=== PATIENT | female | born 1965 | race Caucasian/White ===

== ENCOUNTER 2017-10-07 13:27 | Emergency (ER) | payer MEDICARE, MEDICAID ==
[2017-10-07 13:38] VITALS: BP 154/73
--- NOTE | 2017-10-07 13:53 | UC ---
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 Rn Gastroenterology provides the majority of the history. she tells me that pt does the elliptical everyday at home for exercise, but over the last 3-4 days has been complaining of right knee pain and they noticed the swelling is getting worse. Denies recent specific injury. Rn Gastroenterology tells me that pt fell about 3 years ago and fractured her knee cap requiring surgery, but has been doing well until a few days ago. No recent falls. Denies numbness or tingling. - History of Current Complaint Chief Complaint: UCLowerExtremity Stated Complaint: KNEE PAIN Time Seen by Provider: 10/07/17 13:53 Hx Obtained From: Patient, Family/Rn Gastroenterology Onset/Duration: Sudden Onset Severity Initially: Mild Severity Currently: Mild Pain Intensity: 3 Pain Scale Used: 0-10 Numeric - Allergies/Home Medications Allergies/Adverse Reactions: Allergies Allergy/AdvReac Type Severity Reaction Status Date / Time methylphenidate Allergy See Comment Verified 10/07/17 13:39 [From Ritalin] propoxyphene [From Darvon] Allergy See Comment Verified 10/07/17 13:39 Home Medications: Home Medications Acetaminophen TAB* [Tylenol TAB*] 1 tab PO BEDTIME 10/07/17 [History Confirmed 10/07/17] Ascorbic Acid TAB* [Vitamin C TAB*] 1 tab PO QAM 10/07/17 [History Confirmed ] Calcium Carbonate/Vitamin D3 [Calcium 500 + Vit D Caplet] 1 tab PO BID 10/07/17 [History Confirmed 10/07/17] Calcium Polycarbophil TAB* [Fibercon TAB*] 1 tab PO BID 10/07/17 [History Confirmed 10/07/17] Cholecalciferol TAB* [Vitamin D TAB*] 1 tab PO DAILY 10/07/17 [History Confirmed 10/07/17] Divalproex DR TAB(*) [Depakote DR TAB(*)] 2 tab PO BEDTIME 10/07/17 [History Confirmed 10/07/17] Loratadine 1 tab PO DAILY 10/07/17 [History Confirmed 10/07/17] Lubiprostone [Amitiza] 1 tab PO BID 10/07/17 [History Confirmed 10/07/17] Mirabegron (NF) [Myrbetriq (NF)] 1 tab PO DAILY 10/07/17 [History Confirmed 04/14] Multivitamin [Multivitamins] 1 tab PO DAILY 10/07/17 [History Confirmed 10/07/17 ] Polyethylene Glycol 3350* [Miralax*] 1 packet PO DAILY 10/07/17 [History Confirmed 10/07/17] Venlafaxine TAB (NF) [Effexor TAB (NF)] 150 mg PO DAILY 10/07/17 [History Confirmed 10/07/17] diPHENhydraMINE PO* [Benadryl PO 25 MG TAB*] 1 tab PO BEDTIME 10/07/17 [History Confirmed 10/07/17] PMH/Surg Hx/FS Hx/Imm Hx - Additional Past Medical History Additional PMH: Overactive bladder Anxiety IBS Headaches - Surgical History Surgical History: None - Family History Known Family History: Positive: Unknown - Social History Occupation: Disabled Lives: Assisted Living Alcohol Use: None Substance Use Type: None Smoking Status (MU): Never Smoked Tobacco - Immunization History Most Recent Tetanus Shot: UNK Review of Systems Constitutional: Negative Skin: Negative Respiratory: Negative Cardiovascular: Negative Neurovascular: Negative Musculoskeletal: Other: - Right knee pain and swelling Neurological: Negative Psychological: Negative All Other Systems Reviewed And Are Negative: Yes Physical Exam - Summary Physical Exam Summary: GENERAL: NAD. WDWN. No pain distress. SKIN: No rashes, sores, lesions, or open wounds. NECK: Supple. Nontender. No lymphadenopathy. CHEST: No accessory muscle use. Breathing comfortably and in no distress. CV: RRR. Without m/r/g. Pulses intact popliteal, PT, and DP. Brisk cap refill. MSK: Right knee: FROM passive and active. Strength 5/5. Moderate edema about right knee. NEURO: Alert. Sensations intact and symmetric B/L LEs PSYCH: Age appropriate behavior. Triage Information Reviewed: Yes Vital Signs: Initial Vital Signs Temp 98.7 F 10/07/17 13:31 Pulse 89 10/07/17 13:31 Resp 20 10/07/17 13:31 BP 154/73 10/07/17 13:31 Pulse Ox 99 10/07/17 13:31 Knee Pain Course/Dx - Course Course Of Treatment: XR: IMPRESSION: Acute recurrent or new transverse fracture through the patella versus chronic fracture with nonunion. 1.8 cm cephalocaudal distraction of the proximal and distal pole moieties of the patella. 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 She tells me Dr. Umanzor performed her original surgery and would like to see him again in follow up. Advised to use walker and bear as little weight as possible until f/u with Dr. Umanzor. - Differential Dx/Diagnosis Provider Diagnoses: Right knee pain Discharge - Sign-Out/Discharge Documenting (check all that apply): Discharge/Admit/Transfer - Discharge Plan Condition: Stable Disposition: HOME Referrals: No Primary Care Phys,NOPCP [Primary Care Provider] - Blake Umanzor MD [Medical Doctor] - As Soon As Possible Additional Instructions: If you develop a fever, shortness of breath, chest pain, new or worsening symptoms - please call your PCP or go to the ED. 1) Please call Dr. Umanzor at [facility]oped[facility] as soon as possible to schedule a follow up appointment 2) Use your walker and limit weight bearing as much as possible - Billing Disposition and Condition Condition: STABLE Disposition: Home
--- NOTE | 2017-10-07 14:44 | RAD ---
Indication: RIGHT knee pain and swelling for 3 days. Pain medial aspect of patella. Remote surgery for femur fracture and surgery for patellar fracture 3 years ago. Comparison: None. Technique: RIGHT knee: AP, tunnel, lateral, sunrise views. Report: Bone density appears decreased throughout. Healed fracture at the junction of the distal diaphysis and distal metaphysis of the femur. 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 1.8 cm cephalocaudal distraction of the proximal and distal pole moieties of the patella. Solitary lag screw at the proximal pole of the patella and 3 lag screws at the distal pole of the patella which do not appear to bridge the gap between the fracture fragments. Minimal joint effusion. Normal femoral tibial articular alignment. Only mild medial joint space narrowing. Advanced patellofemoral joint space narrowing and associated subchondral sclerosis and mild osteophytosis. Unremarkable soft tissue contours. 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 1.8 cm cephalocaudal distraction of the proximal and distal pole moieties of the patella.
== END 2017-10-07 15:10 | disposition home or self-care (01) ==
LOC: UCEAST 13:27
DX: M25.561 Pain in right knee (principal); N32.81 Overactive bladder; K58.9 Irritable bowel syndrome, unspecified; R51 Headache; R41.9 Unspecified symptoms and signs involving cognitive functions and awareness; Z88.5 Allergy status to narcotic agent; Z88.8 Allergy status to other drugs, medicaments and biological substances
CPT/HCPCS: 99202; G0463

== ENCOUNTER 2017-10-10 06:44 | Inpatient (IN) | payer MEDICARE, MEDICAID ==
[~2017-10-10 06:44] MED LIST: Buffered Lidocaine 0.9% SYRIN* 5 ML/SYR SYRINGE INTRADERM ONE; Famotidine IV* 10 MG/ML 2 ML (20 mg) IV ONE
[2017-10-10] MEDS ORDERED: ceFAZolin 2 GM PREMIX (*) 2 GM/50 ML BAG IVPB ONE (06:54)
[2017-10-10] MEDS ORDERED: Famotidine IV* 10 MG/ML 2 ML (20 mg) ONE (06:54)
[2017-10-10] MEDS ORDERED: fentaNYL* 50 MCG/ML 2 ML VIAL (100 MCG VIAL) ONE ×2 (08:08→09:43)
[2017-10-10] MEDS ORDERED: Midazolam* 1 MG/ML 5 ML VIAL (5 MG) ONE (08:09)
[2017-10-10] MEDS ORDERED: Ketorolac INJ* 30 MG/ML 1 ML VIAL ONE (08:12)
[2017-10-10] MEDS ORDERED: Succinylcholine* 20 MG/ML 10 ML VIAL ONE ×2 (08:12→08:13)
[2017-10-10] MEDS ORDERED: DiMENhydriNATE IV* 50 MG/ML VIAL ONE (08:12)
[2017-10-10] MEDS ORDERED: Lidocaine 2% PF * 5 ML VIAL ONE (08:12)
[2017-10-10] MEDS ORDERED: Propofol* 10 MG/ML 20 ML BTL IV PUSH ONE (08:12)
[2017-10-10] MEDS ORDERED: Dexamethasone IV* 4 MG/ML 1 ML (4 MG) ONE (08:12)
[2017-10-10] MEDS ORDERED: Bupivacaine 0.5% SDV PF* 30ML VIAL ONE (08:44)
[2017-10-10] MEDS ORDERED: Acetaminophen IV 1GM/100ML * 1,000 MG/100 ML VIAL IVPB ONE (10:12)
[2017-10-10] MEDS ORDERED: Ondansetron INJ* 2 MG/ML VIAL IV PRN ×2 (10:12→13:39)
[2017-10-10] MEDS ORDERED: Naloxone* 0.4 MG/ML 1 ML VIAL IV PRN (10:12)
[2017-10-10] MEDS ORDERED: HYDROmorphone INJ* 1 MG/ML CARPUJECT SYRINGE IV PRN (10:12)
[2017-10-10] MEDS ORDERED: HYDROmorphone INJ* 0.5 MG/0.5 ML SYRINGE ONE (11:31)
[2017-10-10] MEDS ORDERED: Midazolam* 1 MG/ML 2 ML VIAL (2 MG) ONE (11:36)
[2017-10-10] MEDS ORDERED: HYDROmorphone INJ* 2 MG/ML CARPUJECT SYRINGE ONE ×2 (12:49→13:41)
--- NOTE | 2017-10-10 13:10 | RAD ---
INDICATION: ORIF revision RIGHT patella. Technique: 26.9 seconds of?fluoroscopy?was provided?for the physician proceduralist. REPORT: Spot images document removal of the previous fixation screws at the patella and placement of 2 caudal to cranial lag screws across the axial patella fracture with resulting close apposition of the cephalad and caudal moieties of the patella. IMPRESSION: Procedural control films. CPT II Codes: G9500
[2017-10-10] MEDS ORDERED: Levalbuterol 0.63MG/3ML NEB* UNIT OF USE INH ONE ×2 (13:16→13:23)
[2017-10-10] MEDS ORDERED: Glycopyrrolate IV* 0.2 MG/ML 1 ML VIAL IV SLOW PU ONE (13:23)
[2017-10-10] MEDS ORDERED: Acetaminophen TAB* 325 MG PO PRN (13:39)
[2017-10-10] MEDS ORDERED: oxyCODONE/Acetamin 5/325 MG* TAB PO PRN ×2 (13:39→21:00)
[2017-10-10] MEDS ORDERED: Glycopyrrolate IV* 0.2 MG/ML 1 ML VIAL ONE (13:46)
[2017-10-10] MEDS ORDERED: Magnesium Hydroxide LIQ* 30 ML UDC PO PRN (13:54)
[2017-10-10] MEDS ORDERED: oxyCODONE TAB* 5 MG TAB PO PRN (13:54)
[2017-10-10] MEDS ORDERED: oxyCODONE/Acetamin 5/325 MG* TAB ONE (14:04)
[2017-10-10] MEDS: oxyCODONE/Acetamin 5/325 MG* TAB PO PRN ×3 (14:05→23:50)
--- NOTE | 2017-10-10 14:08 | PN ---
Progress Note - Progress Note Date of Service: 10/10/17 Note: Patient underwent right knee ORIF revision on 10/10/[address] Molina. She is mentally disabled and will be toe touch weight bearing. She needs to be kept in observation for physical therapy as there is concern for patient to consistently follow directions to be toe touch weight bearing in a knee immobilizer. She will also need to be taught how to ambulate up stairs as in her guardian's house she has to climb a flight of stairs. She is also in need of pain management. She will need placement in rehab facility on discharge. DVT prophylaxis will be 2 weeks of lovenox and then 2 weeks of 325mg ASA.
[2017-10-10] MEDS: Enoxaparin(*) 40 MG/0.4 ML SYR SUBCUT SCH (15:33)
[2017-10-10] MEDS: ceFAZolin 2 GM PREMIX (*) 2 GM/50 ML BAG IVPB SCH (17:45)
[2017-10-10] MEDS: Magnesium Hydroxide LIQ* 30 ML UDC PO SCH (19:36)
[2017-10-10] MEDS ORDERED: Ibuprofen TAB* 600 MG PO PRN (20:21)
[2017-10-10] MEDS ORDERED: Morphine VIAL* 4 MG/ML VIAL (1 ml vial) IV PRN (20:23)
[2017-10-11] MEDS: ceFAZolin 2 GM PREMIX (*) 2 GM/50 ML BAG IVPB SCH ×2 (01:17→09:28)
[2017-10-11] MEDS: oxyCODONE/Acetamin 5/325 MG* TAB PO PRN ×2 (09:27→13:22)
[2017-10-11] MEDS: Magnesium Hydroxide LIQ* 30 ML UDC PO SCH ×2 (09:28→21:45)
--- NOTE | 2017-10-11 09:54 | PN ---
Progress Note - Progress Note Date of Service: 10/11/17 SOAP: Subjective: [Pt was seen this am sitting up in bed. She states that she is doing well. No pain in the knee just feels that the knee immobilizer is very heavy. Denies any SOB, Chest pain, numbness, tingling, nausea or vomiting.] Objective: [General: Alert and oriented. NAD MSK, Right knee: Dressing is clean, dry and intact. Immobilizer is present. + df /pf. Sensation intact to light touch distally. 2+ DP pulse present. ] Assessment: [POD 1 revision of patella fracture ORIF ] Plan: [Continue with pain medication as needed Continue with PT for range of motion Lovenox for DVT prophylaxis Possible DC on friday ]
[2017-10-11] MEDS: Enoxaparin(*) 40 MG/0.4 ML SYR SUBCUT SCH (13:22)
[2017-10-11] MEDS ORDERED: Cetirizine* 10 MG TAB PO PRN (14:19)
[2017-10-11] MEDS: Mirabegron (NF) 50 MG TAB PO SCH (17:25)
[2017-10-11] MEDS: Venlafaxine EXT RELEASE CAP* 75 MG PO SCH (17:36)
[2017-10-11] MEDS: Calcium Polycarbophil TAB* 625 MG PO SCH (21:47)
[2017-10-11] MEDS: Divalproex DR TAB(*) 500 MG PO SCH (21:47)
[2017-10-12 05:46] LABS: ABS Basophils 0 10^3/ul (0-0.2); ABS Eosinophils 0.2 10^3/ul (0-0.6); ABS Lymphocytes 2.3 10^3/ul (1.0-4.8); ABS Neutrophils 3.6 10^3/ul (1.5-7.7); ABS Nucleated RBC 0 10^3/ul; Eosinophil % 2.3 % (0-6); Hematocrit 30 % (35-47); Hemoglobin 9.8 g/dl (12.0-16.0); Lymphocyte % 32.7 % (25-47); Mean Corpuscular HGB Conc 33 g/dl (31-36); Mean Corpuscular Hemoglobin 32 pg (27-31); Mean Corpuscular Volume 95 fL (80-97); Mean Platelet Volume 8.9 um3 (7.4-10.4); Nucleated Red Blood Cells % 0; Platelet Count 174 10^3/ul (150-450); Red Cell Distribution Width 14 % (10.5-15); White Blood Count 7.2 10^3/ul (3.5-10.8)
[2017-10-12] MEDS: oxyCODONE/Acetamin 5/325 MG* TAB PO PRN ×3 (05:48→20:06)
[2017-10-12 06:11] LABS: EGFR Non-African American 157.2 (>60)
[2017-10-12] MEDS: Magnesium Hydroxide LIQ* 30 ML UDC PO SCH ×2 (09:11→20:25)
[2017-10-12] MEDS: Cholecalciferol TAB* 400 UNIT PO SCH (09:11)
[2017-10-12] MEDS: Calcium Polycarbophil TAB* 625 MG PO SCH ×2 (09:11→20:26)
--- NOTE | 2017-10-12 09:45 | PN ---
Progress Note - Progress Note Date of Service: 10/12/17 SOAP: Subjective: Pt was seen this am sitting up in chair. She states that she is doing well. No pain in the knee just feels that the knee immobilizer is very heavy. Denies any SOB, Chest pain, numbness, tingling, nausea or vomiting.] Objective: [General: Alert and oriented. NAD MSK, Right knee: Dressing is clean, dry and intact. Immobilizer is present. Dressing was changed today. mild amount of dried blood present on guaze. Incision is clean dry and intact, dang in place with no drainage. + df/pf. Sensation intact to light touch distally. 2+ DP pulse present. ] Vital Signs Temp 98.3 F 10/12/17 03:13 Pulse 109 10/12/17 07:33 Resp 20 10/12/17 08:00 BP 114/50 10/12/17 07:33 Pulse Ox 91 10/12/17 07:33 Intake & Output 10/11/17 10/12/17 10/12/17 18:59 06:59 18:59 Intake Total 655 500 Output Total 400 850 Balance 255 -350 Intake: IVPB 55 ABX - CEFAZOLIN 55 Oral 600 500 Output: Urine 400 850 Assessment: [POD 2 revision of patella fracture ORIF ] Plan: [Continue with pain medication as needed Continue with PT for range of motion Lovenox for DVT prophylaxis Possible DC on friday ]
[2017-10-12] MEDS: Enoxaparin(*) 40 MG/0.4 ML SYR SUBCUT SCH (13:47)
[2017-10-12] MEDS: Venlafaxine EXT RELEASE CAP* 75 MG PO SCH (17:56)
[2017-10-12] MEDS: Mirabegron (NF) 50 MG TAB PO SCH (17:56)
[2017-10-12] MEDS: Divalproex DR TAB(*) 500 MG PO SCH (20:46)
--- NOTE | 2017-10-13 04:06 | OP ---
DATE OF OPERATION: 10/10/17 - ROOM #337 DATE OF : 61 SURGEON: Parker Molina MD. DIRECTOR OF CARDIOLOGY SERVICE LINE: BLAYNE Louie. A physician esol teacher assistant was required for the length of the procedure for positioning, retraction, assistance with instrumentation and closure. ANESTHESIOLOGIST: Mitzi Good MD ANESTHESIA: General anesthesia , local anesthesia consisting of 25 cc of 0.5% Marcaine without epinephrine in the subcutaneous tissues about the surgical skin incisions. PRE-OP DIAGNOSES: 1. Right knee recurrent patella fracture. 2. History, 2016 right patella open reduction internal fixation at outside hospital in [place]. 3. Failure of hardware, right patella. 4. Prior history, in the distant past of a right distal femur open reduction internal fixation and subsequent removal of hardware by Dr. Umanzor locally. 5. Right knee osteoarthritis. POST-OP DIAGNOSES: 1. Right knee recurrent patella fracture. 2. History, 2016 right patella open reduction internal fixation at outside hospital in [place]. 3. Failure of hardware, right patella. 4. Prior history, in the distant past of a right distal femur open reduction internal fixation and subsequent removal of hardware by Dr. Umanzor locally. 5. Right knee osteoarthritis. OPERATIVE PROCEDURE: 1. Revision, open reduction internal fixation, right patella fracture. 2. Langlois of bone graft, large, from right proximal tibia. 3. Removal of hardware, deep, open, right knee. ANTIBIOTICS: 2 g Ancef IV. IV FLUIDS: 1400 cc of crystalloid. TOURNIQUET TIME: 120 minutes at 300 mmHg. LVNB-OB-FYOT TIME: 126 minutes. SPECIMEN: Four screws, 3.5 mm in width, partially threaded, from the right patella. IMPLANTS: Arthrex partially threaded 4.0 mm screws, blunt tipped cannulated. One Arthrex FiberTape was placed through these cannulated screws in a figure-of- eight cerclage fashion. Another Arthrex FiberTape was placed circularly around the circumference of the patella. Therefore, 2 Arthrex FiberTapes were utilized. COMPLICATIONS: None. ESTIMATED BLOOD LOSS: Minimal. RADIATION TIME: 26 seconds. RADIATION EXPOSURE: 0.60942 milligray meter squared. INDICATIONS FOR PROCEDURE: The patient is a 52-year-old woman, who is developmentally disabled, who is currently living with a cousin, who is also a guardian of her's, who complained of pain on 10/04/17 to the patient's guardian for the first time. She had recently tried to get some form of exercise. The patient's guardian acknowledged that the patient has long had a limp. The patient's right knee history is long and complicated. Approximately 18 years ago, the patient sustained a right distal femur fracture. Dr. Umanzor locally treated that fracture with an intramedullary nail. At some point, the retrograde placed now became too prominent distally, and was eroding into the patella by history, per the guardian. The nail was therefore removed. The patient then spent 16 years in a [facility] in [place]. 2.5 years ago, the patient fell and fractured her patella. That was treated with surgery there. Just 3 weeks ago, the patient moved in with her guardian in the [place] area. The guardian remembered on today's surgery date that the patient had had a discussion just after that surgery 2.5 years ago about some difficulty with the fixation and that the patient's bone was too soft and that it would be better not to reoperate. No new falls in the last 3 weeks. I saw the patient for the fist time on clinic on 10/07/17, 3 days ago. The patient had a mild knee joint effusion and 0 to 120 degrees of flexion. However , her straight leg raise was not intact and she only had 2/5 knee extension strength. She could not actively extend it beyond 20 degrees of flexion. Tenderness to palpation about the patella. X-rays demonstrated significant displacement of a transverse patella fracture. There might have been small fracture fragments as well, but there were 2 large fracture fragments. One screw appeared to be lodged in the proximal fragment and 3 screws in the distal fragment. This appeared to be a complete failure of hardware and the prior operation. Unclear if the bone had refractured recently or 2 years ago. Given the impoverished ability to extend the knee and this failure of hardware, we opted to treat this operatively. I talked to the patient's guardian at length about my diagnosis, obtained a CT for a preoperative planning, and I had the patient cleared and optimized with a medical doctor. DESCRIPTION OF PROCEDURE: Preoperatively, a written consent was signed by the patient's guardian. I discussed with the patient's guardian risks and potential complications of surgery including bleeding, infection, nerve or blood vessel injury, knee stiffness, pain, osteoarthritis, failure of hardware, refracture of patella. Operative extremity was marked in the preoperative holding. Patient was taken back to the operating room and placed supine on the operative room table. There was some difficulty in obtaining intubation but eventually an endotracheal tube was placed. A tourniquet was placed around the right proximal thigh. A bone foam was placed under the right lower extremity. A blanket bump was placed under the right hemipelvis. Right lower extremity was prepped and draped. Surgical time out was performed. Esmarch was applied and the tourniquet was elevated to 300 mmHg. An anterior midline longitudinal skin incision was made from several fingerbreadths proximal to the proximal pole of the patella to the tibial tubercle. I exchanged knives and continued this down to the patella. I cleared with feathering strokes of the anterior aspect of the patella. Encountered the hardware. Using a screw six horse hitch driver for 3.5-mm screws, I removed all 4 screws. Each came out without breaking. I encountered the fracture site, transverse. There was a significant amount of scar tissue in this making it clear that this was a chronic refracture or failure of hardware. I suspect that this injury or reinjury occurred months to years ago. I removed the scar tissue from the fracture site with a sharp dissection, a knife and a pickup. I then placed the 2 ends of bone of the patella together. They fit together nicely immediately, but there was some defect more laterally but the bone ends did lock together somewhat. The bone ends on either side had clearly sclerosed a little bit with time. There was no softening of the patella as prior surgeon had referred to according to the patient's guardian, who knows exactly what was said. I prepared the bone ends a bit with a gilson, this debrided the sclerotic bone ends allowing for a better healing environment. I also used a drill bit to drill some small 2-mm holes to enable better healing. I then obtained some bone graft from right proximal tibia. I continued my incision another centimeter distally. I dissected over to Gerdy' s tubercle. I palpated it. I made an oblique incision in the fascia and periosteum starting at Gerdy's tubercle and moving anteromedially. This allowed me to avoid any damage to the patellar tendon and the iliotibial band. I did release a small amount of anterior compartment fascia off the tibia. I made a hole approximally 1.5 x 2 cm and removed the cortex. I made that window by drilling with a 2-mm drill bit and then completing with an osteotome. Using 1 or 2 curettes, I removed cancellous bone from within the proximal tibia. This looked like would be an excellent bone graft material. I stored the cortical bone window in saline. I next returned to the patella. I clamped the bone ends together. I debrided a small amount of ectopic calcification laterally that did not fit into the fracture site. The fracture was somewhat unstable. I obtained imaging. While the reduction by x-ray did not look perfect, it appeared to line up nicely as I evaluated both the superficial and a deep aspect of the patella. My reduction allowed for a significant length of bone to bone healing that would provide the best opportunity for healing. I next placed K-wires across the patella. I found that K-wires held the reduction provisionally better than any clamp could. I did not like the exact position of these pins. So, I placed 2 new pins, from distal to proximal across the fracture site. I liked the position of those pins on AP and lateral. I measured the correct distance. I measured 50 mm as being the correct length of these pins in bone. Having done many of these procedures , I knew that 50 mm would likely be too long. However, I wanted to err on the side too long rather than too short, as I wanted to be bicortical to give this fracture every possible opportunity to heal given the patient's history of failure of fixation and reduction with this injury. I drilled and placed two 4.0 mm partially threaded cannulated screws from Arthrex. As I placed the screws, I was able to compress at the fracture site. This made the screws somewhat prominent proximally. I was comfortable with that. I figure it better to be too long than too short. I next placed an Arthrex FiberTape in [id number] fashion through the cannulated screws and over the superficial aspect of the patella. Before tying this FiberTape, I took my bone graft from the tibia and applied it along the anterior aspect of the fracture site. This stayed in place and did not move , which was excellent. I tied my first FiberTape. I then placed a second FiberTape around the circumference of the patella. I next closed my arthrotomy incisions medial and lateral to the patella with figure- of-eight stitches using Vicryl 0 suture. I held down my FiberTape stitches with Vicryl 0 stitches. Irrigation. I next put back into place my cortical window about the proximal tibia and closed my anterior compartment fascia. Irrigation. Closure of some rents that were made in the patella and quadriceps tendon to facilitate passage of pins and screws was performed. Closure of these was made with [id number] stitches using Vicryl 0 suture. Closure of the subcutaneous tissue with buried simple stitches using Vicryl 2-0 suture. Closure of the skin with dang. Local anesthesia was used, 25 cc of 0.5% Marcaine without epinephrine. Xeroform, 4x4s , ABDs, sterile Webril, tourniquet was dropped. Yoan bandage from foot to proximal thigh, cooling unit and a knee immobilizer. DISPOSITION: The initial plan had been to discharge the patient home. However , it was clear given the at home and the patient's mobility and pain level, that the patient would not be able to safely go home. Therefore, the patient was admitted to the hospital for pain control and for functional assessment and work with physical therapy. As needed, rehabilitation placement will be pursued. The patient will be on Lovenox 40 mg subcu daily x2 weeks followed by aspirin 325 mg p.o. b.i.d. times additional 2 weeks. She will receive Percocet as needed for pain control. She will received Ancef 1 g IV q.8 hours x24 hours postoperative. The patient will follow up with me in 10 to 14 days postoperatively and soon after that we will commence physical therapy. [id number]/[facility] #: [id number] [facility]
--- NOTE | 2017-10-13 07:57 | PN ---
Progress Note - Progress Note Date of Service: 10/13/17 SOAP: Subjective: Pt was seen this am sitting up bed. She states that she is doing well. No pain in the knee, she has added some guaze around the edges of the knee immobilizer due to rubbing. Denies any SOB, Chest pain, numbness, tingling, nausea or vomiting.] Objective: [General: Alert and oriented. NAD MSK, Right knee: Dressing is clean, dry and intact. Immobilizer is present. dressing is clean dry and intact. + df/pf. Sensation intact to light touch distally. 2+ DP pulse present. ] Vital Signs Temp 98.4 F 10/13/17 03:16 Pulse 114 10/13/17 03:16 Resp 16 10/13/17 06:40 BP 105/40 10/13/17 03:16 Pulse Ox 94 10/13/17 03:16 Intake & Output 1718 18 10/13/17 18:59 06:59 18:59 Intake Total 560 1640 Output Total 300 850 Balance 260 790 Intake: Oral 560 1640 Output: Urine 300 850 Other: Date of Last Bowel 10/12/17 Movement Assessment: [POD 3 revision of patella fracture ORIF ] Plan: [Continue with pain medication as needed Continue with PT for range of motion Lovenox for DVT prophylaxis DC to rehab once placement has been made ]
[2017-10-13] MEDS: oxyCODONE/Acetamin 5/325 MG* TAB PO PRN ×2 (08:11→13:17)
[2017-10-13] MEDS: Calcium Polycarbophil TAB* 625 MG PO SCH (08:11)
[2017-10-13] MEDS: Cholecalciferol TAB* 400 UNIT PO SCH (08:11)
[2017-10-13] MEDS: Magnesium Hydroxide LIQ* 30 ML UDC PO SCH (08:11)
[2017-10-13] MEDS: Enoxaparin(*) 40 MG/0.4 ML SYR SUBCUT SCH (13:19)
[2017-10-13 15:25] VITALS: BP 133/46
--- NOTE | 2017-10-21 04:14 | DS ---
DISCHARGE SUMMARY: DATE OF ADMISSION: 10/10/17 DATE OF DISCHARGE: 10/13/17 PROVIDER: Dr. Parker Molina.* (DICTATED BY BLAYNE RYDER) ADMITTING DIAGNOSIS: Right patellar revision ORIF. CONSULTATIONS: Physical Therapy and Occupational Therapy. HISTORY OF PRESENT ILLNESS: The patient is a 52-year-old female, who underwent a previous open reduction internal fixation of her patella that has continued to cause her pain. She would like revision of the patella in order to attempt to heal better and help dissipate the pain. HOSPITAL COURSE: The patient was admitted to on 10/10/17 and underwent a right patella open reduction internal fixation revision with no complications. She recovered briefly in the postanesthesia care unit and was then transferred to the short stay surgical unit in stable condition. On postop day #1, she was doing well. A knee immobilizer was in place. She worked with Physical Therapy and Occupational Therapy on range of motion. Lovenox was given for DVT prophylaxis and pain was well controlled with pain medication. This continued on postop day #2 and postop day #3. Her vital signs remained stable throughout the hospital course and the patient was afebrile. She was found to be good for discharge on postop day #3. DISCHARGE CONDITION: Good. DISCHARGE MEDICATIONS: 1. Acetaminophen. 2. Ascorbic acid. 3. Calcium carbonate/vitamin D3. 4. Calcium polycarbophil and vitamin D tab. 5. Depakote ER tab 500 mg. 6. Ibuprofen 400 mg. 7. Loratadine 10 mg. 8. Mirabegron 50 mg. 9. Multivitamin. 10. Venlafaxine 100 mg. Discharge medications: 1. Lovenox 40 mg. 2. Percocet 5/325. DISCHARGE INSTRUCTIONS: Weightbearing is toe touch weightbearing with a knee immobilizer on. DISCHARGE INSTRUCTIONS: 1. Diet: Regular diet, increase fluids and fiber to prevent constipation. Continue to use stool softener, call the office if no bowel motion within 48 hours. 2. Continue physical therapy and occupational therapy exercises as shown. 3. Outpatient physical therapy as soon as possible. 4. DVT prophylaxis, Lovenox 40 mg subcutaneously daily for 4 weeks after fracture. 5. Follow up with Dr. Molina within 2 weeks. Call for an appointment. Uche will be removed at this appointment. BLAYNE RYDER [id number]/[facility] #: [id number] [facility] HOSPITALAlexia
== END 2017-10-13 17:05 | DRG 493 ==
LOC: OR 06:44 → OBSVTOIN 15:13 → SSU 15:13
PROVIDERS: ADMIT Orthopaedic Surgery; ATTEND Orthopaedic Surgery
PROC: 0QW Lower Bones, Revision (ICD-10-PCS; 2017-10-10)
PROC: 0QPD04Z Removal of Internal Fixation Device from Right Patella, Open Approach (ICD-10-PCS; 2017-10-10)
PROC: 0QBG0ZZ Excision of Right Tibia, Open Approach (ICD-10-PCS; principal; 2017-10-10 08:30)
DX: S82.031A Displaced transverse fracture of right patella, initial encounter for closed fracture (principal); T84.126A Displacement of internal fixation device of bone of right lower leg, initial encounter; X58.XXXA Exposure to other specified factors, initial encounter; Y92.9 Unspecified place or not applicable; M17.11 Unilateral primary osteoarthritis, right knee; Q96.4 Mosaicism, 45, X/other cell line(s) with abnormal sex chromosome; G47.30 Sleep apnea, unspecified; G43.909 Migraine, unspecified, not intractable, without status migrainosus; F70 Mild intellectual disabilities; M81.0 Age-related osteoporosis without current pathological fracture; K59.00 Constipation, unspecified; R15.9 Full incontinence of feces; R32 Unspecified urinary incontinence; Z87.81 Personal history of (healed) traumatic fracture; Z79.1 Long term (current) use of non-steroidal anti-inflammatories (NSAID); Z79.899 Other long term (current) drug therapy; Z88.8 Allergy status to other drugs, medicaments and biological substances
CPT/HCPCS: 36415; 76000; 80048; 85025; 88300; 99202; A9270-GY; C1713; G0463; J0330; J0690; J1100; J1170; J1240; J1650; J1885; J2250; J2704; J3010

== ENCOUNTER 2019-05-12 08:40 | Emergency (ER) | payer MEDICARE, MEDICAID ==
--- OUTSIDE RECORDS SUMMARY | 2019-05-12 09:07 | XMS REPORT | Continuity of Care Document ---
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 Migraine Wander Ward NP Onset: 05/11/2018 Social History Type Date Description Comments Sex Unknown Tobacco Use Start: Unknown Never Smoked Cigarettes Smoking Status Reviewed: 04/06/19 Never Smoked Cigarettes ETOH Use Denies alcohol use Tobacco Use Start: Unknown Patient has never smoked Exercise Type/Frequency Exercises sporadically Allergies, Adverse Reactions, Alerts Active Allergies Reaction Severity Comments Date Ritalin 10/07/2017 Propoxyphene 10/07/2017 Medications Active Medications SIG Qnty Indications Ordering Date Provider Gi Cough Drops One lozenge 60units Wander Ward NP 04/05/2019 dissolved in mouth 5.8mg Lozenges e very 2 hours as needed for cough. (May carry with her) Vitamin D3 Take 1 Tablet By 60tabs Wander Ward NP 11/25/2018 400Unit Mouth 2 Times A Tablets Day (Supplement) Tylenol PM Extra 1 tab po qHS for 30tabs Wander Ward NP 07/23/2018 Strength insomnia. 500-25mg Tablets Vitamin C Take 1 Tablet By 90tabs Wander Ward NP 07/16/2018 500mg Mouth Every Day Tablets Senexon-S Take 1 Tablet By 60tabs Wander Ward NP 07/16/2018 8.6-50mg Mouth 2 Times A Tablets Day Calcium 600+D Take 1 Tablet By 60tabs Wander Ward NP 07/09/2018 600-800 Mouth 2 Times A Tablets Day (Deficiency) Cane/Adjustable/Alum for use when 1units S82.031K Wander Ward NP 2018 inum/Round Handle ambulating 5/8" 5/8" Misc Divalproex Sodium ER Take Two Tablets 60tabs Wander Ward NP 03/26/2018 By Mouth Every Day 500mg Tablets ER (Migraines) 24HR Calcium + D3 1 by mouth twice 60tabs Wander Ward NP 03/03/2018 daily [id number]-[id number] Tablets D3-50 take 1 capsule by 3caps Wander Ward NP 03/03/2018 [id number] mouth once a month Capsules Multivitamin Adult one tablet daily 30tabs Wander Ward NP 10/09/2017 Tablets Myrbetriq Take 1 Tablet By 30tabs Wander Ward NP 10/09/2017 50mg Mouth Every Day Tablets ER 24HR (Urinary Incont Venlafaxine HCL ER Take One Capsule 30caps Wander Ward NP 10/09/2017 By Mouth Every Day 150mg Caps ER 24HR Aleve 1-2 by mouth twice Unknown 220mg Capsules a day as needed Oxybutynin Chloride Unknown ER 10mg Tablets ER 24HR Miralax 17 grams by mouth Unknown Powder every day as needed History Medications Multivitamin Daily Take 1 Tablet By Mouth 30units Wander Ward NP 2018 - Every Day (Supplement) 03/03/2019 Immunizations Description No Information Available Vital Signs Date Vital Result Comment 04/06/2019 11:05am Height 57 inches 4'9" Weight 173.62 lb Heart Rate 77 /min BP Systolic 119 mmHg BP Diastolic 64 mmHg Respiratory Rate 18 /min Body Temperature 97.6 F O2 % BldC Oximetry 97 % BMI (Body Mass Index) 37.6 kg/m2 03/04/2019 11:18am Height 57 inches 4'9" Weight 176.00 lb Heart Rate 87 /min BP Systolic 122 mmHg BP Diastolic 65 mmHg Body Temperature 97.2 F O2 % BldC Oximetry 100 % BMI (Body Mass Index) 38.1 kg/m2 Results Test Acquired Date Facility Test Result H/L Range Note Laboratory test 04/06/2019 [facility] Cytology <pending> finding [address] [place] [address] [phone] Laboratory test 03/04/2019 [facility] [employer] <pending> finding Lipid Profile 03/02/2019 [facility] Triglycerides 67 mg/dL 1 (Trig/Chol/HDL) [address] [place] [address] [phone] Cholesterol 223 mg/dL 2 HDL Cholesterol 96.4 mg/dL 3 LDL Cholesterol 113 mg/dL 4 Basic Metabolic 03/02/2019 [facility] Sodium 140 mmol/L Normal 135-145 Panel [address] [place] [address] [phone] Potassium 4.2 mmol/L Normal 3.5-5.0 Chloride 100 mmol/L Low 101-111 Co2 Carbon Dioxide 36 mmol/L High 22-32 Anion Gap 4 mmol/L Normal 2-11 Glucose 80 mg/dL Normal 70-100 Blood Urea Nitrogen 17 mg/dL Normal 6-24 Creatinine 0.40 mg/dL Low 0.51-0.95 BUN/Creatinine Ratio 42.5 High 8-20 Calcium 9.5 mg/dL Normal 8.6-10.3 Egfr Non- 165.1 >60 Egfr 199.8 >60 5 1 Desirable: <150 Borderline High: 150-199 High: 200-499 Very High: >500 2 Desirable: <200 Borderline High: 200-239 High: >239 3 Low: <40 Desirable: 40-60 High: >60 4 Desirable: <100 Near Optimal: 100-129 Borderline High: 130-159 High: 160-189 Very High: >189 5 Because ethnic data is not always readily available, this report includes an eGFR for both -Americans and non- Americans. The National Kidney Disease Education Program (NKDEP) does not endorse the use of the MDRD equation for patients that are not between the ages of 18 and 70, are , have extremes of body size, muscle mass, or nutritional status, or are non- or non-. According to the National Kidney Foundation, irrespective of diagnosis, the stage of the disease is based on the level of kidney function: Stage Description GFR(mL/min/1.73 m(2)) 1 Kidney damage with normal or decreased GFR 90 2 Kidney damage with mild decrease in GFR 60-89 3 Moderate decrease in GFR 30-59 4 Severe decrease in GFR 15-29 5 Kidney failure <15 (or dialysis) Procedures Description No Information Available Medical Devices Description No Information Available Encounters Type Date Location Provider Dx Diagnosis Office Visit 12/15/2018 [facility] Parker Mckeon S82.031K Displ transverse 11:15a at Stephanie Molina MD fx r patella, subs for clos fx w nonunion Z09 Encntr for f/u exam aft trtmt for cond oth than malig neoplm Z87.81 Personal history of (healed) traumatic fracture Assessments Date Code Description Provider 04/06/2019 Z01.419 Encounter for gynecological examination Alberta Barboza (general) (routine) without abnormal findings 04/06/2019 N95.0 Postmenopausal bleeding Alberta Barboza 03/04/2019 Z00.00 Encounter for general adult medical Wander Ward NP examination without abnormal findings 03/04/2019 Z12.11 Encounter for screening for malignant Wander Ward NP neoplasm of colon 03/04/2019 Z12.31 Encounter for screening mammogram for Wander Ward NP malignant neoplasm of breast 12/15/2018 S82.031K Displaced transverse fracture of right Parker Molina MD patella, subsequent e 12/15/2018 Z09 Encounter for follow-up examination after Parker Molina MD completed treatment for conditions other than malignant neoplasm 12/15/2018 Z87.81 Personal history of (healed) traumatic Parker Molina MD fracture Plan of Treatment Future Appointment(s):04/27/2019 11:30 am - Alberta [facility]03/06/2020 11:00 am - Wander Ward NP at [facility]04/06/2019 - Petty BarbozaeZ01.419 Encounter for gynecological examination (general) (routine) without abnormal findingsComments: I will send you a letter with pap results. Please call the office if you do not receive your results within two weeks. Keep working on increasing your activity to stay healthy and kzejkbD86.0 Postmenopausal bleedingRecommendations: We will follow up after the ultrasound to talk about the results Functional Status Description No Information Available Mental Status Description No Information Available Referrals Refer to Reason for Referral Status Appt Date Gonzalez Kaur MD Sent 03/19/2019 [address], [place] [address] [phone]
[2019-05-12 10:23] LABS: Hematocrit 38 % (35-47); Hemoglobin 12.9 g/dL (12.0-16.0); Mean Corpuscular HGB Conc 34 g/dL (31-36); Mean Corpuscular Hemoglobin 32 pg (27-31); Mean Corpuscular Volume 94 fL (80-97); Mean Platelet Volume 8.6 fL (7.4-10.4); Platelet Count 234 10^3/uL (150-450); Red Blood Count 4.08 10^6 /uL (3.70-4.87); Red Cell Distribution Width 14 % (10-15); White Blood Count 5.6 10^3/uL (3.5-10.8)
[2019-05-12 10:36] LABS: Albumin 3.6 g/dL (3.2-5.2); Albumin/Globulin Ratio 1.2 (1-3); BUN/Creatinine Ratio 29.4 (8-20); Calcium 9.4 mg/dL (8.6-10.3); EGFR Non-African American 199.2 (>60); Potassium 4.1 mmol/L (3.5-5.0); Total Bilirubin 0.3 mg/dL (0.2-1.0); Total Protein 6.6 g/dL (6.4-8.9)
[2019-05-12 11:27] VITALS: BP 134/72
--- NOTE | 2019-05-13 06:03 | ED ---
Adult Trauma - HPI Summary HPI Summary: This patient is a 54-year-old female who presents to the ED with a fall yesterday. Patient states she was getting out of the van when she twisted her foot and fell, hitting the back of her head and scraping her left knee. Patient lives at the [facility] and is here with staff member. Patient states there were staff members present and state she had a loss of consciousness, but she is unsure for how long. Staff member at bedside was not present during yesterday's fall. She states since the fall, she has denied any headache or confusion, memory loss, visual changes or disturbances, unsteady gait, bilateral upper or lower extremity weakness. She does state she has some pain where the laceration is to the posterior portion of the scalp. Bleeding was well controlled last evening. No history of head trauma or concussions. She is endorsing left knee pain due to "the skin." States she continues to be able to flex and extend the knee without discomfort. Denies any hip pain although states she had mild hip pain while sitting in a wheelchair last evening , but denies this currently. No other signs of trauma per patient. She does state she is unsure if she was dizzy prior to her fall. No history of dizziness. - History of Current Complaint Chief Complaint: EDSyncope Stated Complaint: FALL-HEAD AND LEG INJURY PER PT Time Seen by Provider: 05/12/19 08:49 Hx Obtained From: Patient ?: No Mechanism of Injury: Blunt Trauma Loss of Consciousness: brief (seconds) - unsure of specific time frame of LOC Onset/Duration: Started Days Ago Onset Severity: Mild Current Severity: Mild Pain Intensity: 3 Pain Scale Used: 0-10 Numeric Character: Aching Aggravating Factor(s): Nothing Alleviating Factor(s): Nothing Associated Signs & Symptoms: Positive: Negative - Allergy/Home Medications Allergies/Adverse Reactions: Allergies Allergy/AdvReac Type Severity Reaction Status Date / Time methylphenidate AdvReac See Comment Verified 10/28/18 08:37 [From Ritalin] propoxyphene [From Darvon] AdvReac See Comment Verified 10/28/18 08:37 Home Medications: Home Medications Acetaminophen [Tylenol Extra Strength] 1,000 mg PO Q8H PRN 05/12/19 [History Confirmed 05/12/19] Cholecalciferol (Vitamin D3) [D 400] 400 unit PO BID 05/12/19 [History Confirmed 05/12/19] Divalproex ER TAB(*) [Depakote ER TAB(*)] 1,000 mg PO DAILY 05/12/19 [History Confirmed 05/12/19] Naproxen Sodium [Aleve] 440 mg PO Q8H PRN 05/12/19 [History Confirmed 05/12/19] Oxybutynin XL TAB* [Ditropan XL TAB*] 10 mg PO DAILY 05/12/19 [History Confirmed 05/12/19] Polyethylene Glycol 3350* [Miralax*] 17 gm PO DAILY 05/12/19 [History Confirmed 05/12/19] Sennosides/Docusate Sodium [Senna Plus 8.6-50 mg Softgel] 1 each PO BID [History Confirmed 05/12/19] PMH/Surg Hx/FS Hx/Imm Hx Previously Healthy: Yes Endocrine/Hematology History: Denies: Hx Diabetes Cardiovascular History: Denies: Hx Hypertension Respiratory History: Reports: Hx Asthma - as a child Denies: Hx Chronic Obstructive Pulmonary Disease (COPD) History: Reports: Other Problems/Disorders - bladder sling Denies: Hx Dialysis Musculoskeletal History: Reports: Hx Arthritis - bilateral hands, Other Musculoskeletal History - right knee patellar fx Sensory History: Reports: Hx Contacts or Glasses - glasses, Hx Hearing Aid - bilateral Opthamlomology History: Reports: Hx Contacts or Glasses - glasses Neurological History: Reports: Hx Migraine - reports occas, Other Neuro Impairments/Disorders - insomnia issues Denies: Hx Dementia, Hx Seizures - Surgical History Surgery Procedure, Year, and Place: bladder sling - [place] 2007. ear drum repair - [place] - 2009. [place] patellar fx with hardware- [place] 2015. right femur fx with hardware (removed later) [place] [facility] [place]. [place] 1997 [place] [facility] [place] Hx Anesthesia Reactions: No Infectious Disease History: No Infectious Disease History: Denies: Traveled Outside the [place] in Last 30 Days - Family History Known Family History: Positive: Unknown - Social History Occupation: Unemployed Lives: [facility] Alcohol Use: None Substance Use Type: Reports: None Smoking Status (MU): Never Smoked Tobacco Review of Systems Negative: Fever, Chills, Fatigue, Skin Diaphoresis Negative: Palpitations, Chest Pain Negative: Shortness Of Breath, Cough Genitourinary: Negative Positive: no symptoms reported, see HPI Positive: Arthralgia - right knee pain. Negative: Myalgia Positive: Other - abrasion to the L knee All Other Systems Reviewed And Are Negative: Yes Physical Exam Triage Information Reviewed: Yes Vital Signs On Initial Exam: Initial Vitals Temp Pulse Resp BP Pulse Ox 97.6 F 93 16 159/99 100 05/12/19 08:43 05/12/19 08:43 05/12/19 08:43 05/12/19 08:43 05/12/19 08:43 Vital Signs Reviewed: Yes Appearance: Positive: Well-Appearing, No Pain Distress, Well-Nourished Skin: Positive: Warm, Skin Color Reflects Adequate Perfusion, Other - abrasion to the L knee Head/Face: Positive: Normal Head/Face Inspection, Other - abrasion/laceration to the posterior scalp - no associated bleeding or suture requirement Eyes: Positive: EOMI, JUAN CARLOS, Conjunctiva Clear Neck: Positive: Supple, No Lymphadenopathy Respiratory/Lung Sounds: Positive: Clear to Auscultation, Breath Sounds Present Cardiovascular: Positive: RRR, Pulses are Symmetrical in both Upper and Lower Extremities Musculoskeletal: Positive: Normal, Strength/ROM Intact Neurological: Positive: Speech Normal Psychiatric: Positive: Normal, Affect/Mood Appropriate Procedures - Sedation Patient Received Moderate/Deep Sedation with Procedure: No Diagnostics - Vital Signs Vital Signs Temp Pulse Resp BP Pulse Ox 05/12/19 11:19 98.6 F 92 18 134/72 98 05/12/19 11:00 88 16 96 05/12/19 10:00 84 18 98 05/12/19 09:29 88 19 98 05/12/19 08:43 97.6 F 93 16 159/99 100 - Laboratory Lab Results: Lab Results 05/12/19 05/12/19 Range/Units 09:52 09:52 WBC 5.6 (3.5-10.8) 10^3/uL RBC 4.08 (3.70-4.87) 10^6 /uL Hgb 12.9 (12.0-16.0) g/dL Hct 38 (35-47) % MCV 94 (80-97) fL MCH 32 H (27-31) pg MCHC 34 (31-36) g/dL RDW 14 (10-15) % Plt Count 234 (150-450) 10^3/uL MPV 8.6 (7.4-10.4) fL Sodium 139 (135-145) mmol/L Potassium 4.1 (3.5-5.0) mmol/L Chloride 101 (101-111) mmol/L Carbon Dioxide 34 H (22-32) mmol/L Anion Gap 4 (2-11) mmol/L BUN 10 (6-24) mg/dL Creatinine 0.34 L (0.51-0.95) mg/dL Est GFR ( Amer) 241.0 (>60) Est GFR (Non-Af Amer) 199.2 (>60) BUN/Creatinine Ratio 29.4 H (8-20) Glucose 79 (70-100) mg/dL Calcium 9.4 (8.6-10.3) mg/dL Total Bilirubin 0.30 (0.2-1.0) mg/dL AST 22 (13-39) U/L ALT 17 (7-52) U/L Alkaline Phosphatase 69 (34-104) U/L Total Protein 6.6 (6.4-8.9) g/dL Albumin 3.6 (3.2-5.2) g/dL Globulin 3.0 (2-4) g/dL Albumin/Globulin Ratio 1.2 (1-3) Result Diagrams: 05/12/19 09:52 05/12/19 09:52 Lab Statement: Any lab studies that have been ordered have been reviewed, and results considered in the medical decision making process. Adult Trauma Course/Dx - Course Course Of Treatment: During the course of treatment, the patient is evaluated for a fall which occurred yesterday. On physical examination, there is a 1 cm laceration to the posterior occipital scalp without associated bleeding. No neuro deficits noted. Patient appears well, smiling and appears to be in no acute distress. She is stating her pain is currently a 1/10. There is an abrasion to the L knee without associated pain on palpation. Flexion and extension without discomfort. Patient states she could have been dizzy prior to the fall, so labs were obtained. These are all WNL. She states she has been eating and drinking okay prior and post fall. CT brain obtained which shows no acute traumatic findings. Labs obtained which are WNL. An x-ray of the knee was not obtained as she is not having any discomfort to the area at this time, remains ambulatory with her walker and is able to flex and extend without discomfort. She will be diagnosed with fall and is okay for discharge at this time. - Diagnoses Differential Diagnosis/HQI/PQRI: Positive: Abrasion(s), Contusion(s) Provider Diagnoses: Fall, Abrasion Discharge ED - Sign-Out/Discharge Documenting (check all that apply): Patient Departure - Discharge Plan Condition: Stable Disposition: HOME Patient Education Materials: Dizziness (ED) Referrals: Wander Ward NP [Primary Care Provider] - Additional Instructions: Please follow up with PCP as needed Tylenol 650mg three times daily can be used for discomfort - Billing Disposition and Condition Condition: STABLE Disposition: Home - Attestation Statements Provider Attestation: I was available for consultation for this patient. I did not evaluate the patient, or participate in any medical decision making or disposition decisions unless I am specifically named in the chart as having consulted on the patient. If I have consulted on the patient, please see my own ED note on the patient encounter. Nahum Cortez MD
== END 2019-05-12 11:19 | disposition home or self-care (01) ==
LOC: ED 08:40
DX: S00.01XA Abrasion of scalp, initial encounter (principal); S80.212A Abrasion, left knee, initial encounter; V48.4XXA Person boarding or alighting a car injured in noncollision transport accident, initial encounter; Y92.9 Unspecified place or not applicable; Z79.899 Other long term (current) drug therapy; Z88.5 Allergy status to narcotic agent; Z88.8 Allergy status to other drugs, medicaments and biological substances
CPT/HCPCS: 36415; 70450; 80053; 85027; 93005; 99282